=== PATIENT | female | born 1960 | race Caucasian/White ===

== ENCOUNTER → 2020-08-26 10:31 | Outpatient (CLI) | payer OTHER, SELFPAY ==
[2020-08-26 19:58] LABS: SARS-CoV-2 RNA PCR Positive
== END ==
PROVIDERS: PCP Family Medicine Adolescent Medicine; Visit Provider Physician Assistant
DX: U07.1 COVID-19 (principal)
CPT/HCPCS: C9803; U0003; U0005

== ENCOUNTER 2025-02-19 18:30 | Emergency (ER) | payer OTHER, SELFPAY ==
--- OUTSIDE RECORDS SUMMARY | 2008-09-28 05:00 | XMS_ITS | Continuity of Care Document ---
Author Organization [facility] Address [address] [place] [address] [place] [address] Phone Care Team Providers Care Hole Puncher Strap Name Role Phone Van Manriquez Unavailable Unavailable Procedures Procedure Date Office/outpatient Visit, Est Office/outpatient Visit, Est Office/outpatient Visit, Est Eye Exam & Treatment Office/outpatient Visit, Est Office Consultation Advance Directives Directive Yes / No Effective Date File Name No Information Encounters Encounter Description Practice Location Reason(s) For Visit Diagnoses Date Provider Providers Copied on Encounter Office/outpat ient Visit, [facility], [address] [place] [address] [address], [place], [place], [id number], [place] tel:[phone] [facility] No Information [address] [address], [place], [address], [place]. tel:[phone] Referring Provider: Jose Frank OD, [address] [place], [address]. tel:[phone] Office/outpat ient Visit, [facility], [address] [place] [address] [address], [place], [place], [id number], [place] tel:[phone] [facility] No Information 1-[address] [address], [place], [address], [place]. tel:[phone] Referring Provider: Jose Ramachandranjose OD, [address] [place], [address]. tel:[phone] Office/outpat ient Visit, [facility], [address] [place] [address] [address], [place], [place], [id number], [place] tel:[phone] SEC [facility] No Information [address]. [facility] [address], [facility], [place]. tel:[phone] Referring Provider: Jose Frank OD, [address] [place], [address]. tel:[phone] [facility], [address] [place] [address] [address], [place], [place], [id number], [place] tel:[phone] [facility] No Information 8 [address]. [facility] [address], [facility], [place]. tel:[phone] Referring Provider: Jose Frank OD, [address] [place], [address]. tel:[phone] Office/outpat ient Visit, [facility], [address] [place] [address] [address], [place], [place], [id number], [place] tel:[phone] SEC [place] [facility] No Information 7 Renee Quinteros. [address], [address] [place], [id number], [place]. tel:[phone] Office [facility]ation [facility], [address] [place] [address], [place], [place], [address], [place] tel:[phone] SEC [place] [facility] No Information 200 7 Rosa [address]us. [address], [place], [address], [place]. tel:[phone] Referring Provider: Jose Frank OD, [address] [place], [address]. tel:[phone] Family History Family Member Type Diagnosis Age At Onset No Information Payers Payer name Insurance type Covered republican ID Authoriza tion(s) No Information Social History Type Description Quantity Date Captured Comments Sex Female Smoking Status No Information Chief Complaint And Reason For Visit No Information Reason For Referral Reason For Referral No Information History Of Present Illness Encounter Date Complaint History Of Prese nt Illness No Information Functional Status Date Functional Assessmen t No Information Instructions Date Instruction Additional Infor mation No Information Assessments Type Assessment Date No Information Patient Care Teams Name Effective Dates (start - stop) Status Members No Information
--- OUTSIDE RECORDS SUMMARY | 2008-09-28 05:00 | XMS_ITS | Continuity of Care Document ---
Author Organization [facility] Address [address] [place] [address] [place] [address] Phone Care Team Providers Care Building Performance Consultant Name Role Phone Van Manriquez Unavailable Unavailable Procedures Procedure Date Office/outpatient Visit, Est Office/outpatient Visit, Est Office/outpatient Visit, Est Eye Exam & Treatment Office/outpatient Visit, Est Office Consultation Advance Directives Directive Yes / No Effective Date File Name No Information Encounters Encounter Description Practice Location Reason(s) For Visit Diagnoses Date Provider Providers Copied on Encounter Office/outpat ient Visit, [facility], [address] [place] [address] [address], [place], [place], [id number], [place] tel:[phone] [facility] No Information [address] [address], [place], [address], [place]. tel:[phone] Referring Provider: Jose Frank OD, [address] [place], [address]. tel:[phone] Office/outpat ient Visit, [facility], [address] [place] [address] [address], [place], [place], [address], [place] tel:[phone] [facility] No Information 1-200 8 [address] [address], [place], [address], [place]. tel:[phone] Referring Provider: Jose Ramachandranjose OD, [address] [place], [address]. tel:[phone] Office/outpat ient Visit, [facility], [address] [place] [address] [address], [place], [place], [id number], [place] tel:[phone] SEC [facility] No Information [address]. [facility] [address], [facility], [place]. tel:[phone] Referring Provider: Jose Frank OD, [address] [place], [address]. tel:[phone] [facility], [address] [place] [address] [address], [place], [place], [id number], [place] tel:[phone] [facility] No Information 8 [address]. [facility] [address], [facility], [place]. tel:[phone] Referring Provider: Jose Frank OD, [address] [place], [address]. tel:[phone] Office/outpat ient Visit, [facility], [address] [place] [address] [address], [place], [place], [id number], [place] tel:[phone] SEC [place] [facility] [place] No Information 7 Renee Quinteros. [address] [facility], [address] [place], [id number], [place]. tel:[phone] Office Consultation [facility], [address], [place], [place], [address], [place] tel:[phone] SEC [place] [facility] No Information 200 7 Rosa Lemus. [address], [place], [address], [place]. tel:[phone] Referring Provider: Jose Frank OD, [address] [place], [address]. tel:[phone] Family History Family Member Type Diagnosis Age [...]
--- NOTE | ~2025-02-19 | XR_ITS ---
XR hand RT min 3V INDICATION: injury from getting caught in mole trap . COMPARISON: None. FINDINGS: Frontal, lateral, and oblique views of the right hand demonstrate no acute fracture or dislocation. Degenerative changes with joint space narrowing are noted. IMPRESSION: Radiographic examination of the right hand demonstrates no acute fracture or dislocation. Reviewed, dictated and finalized at location S. IMPRESSION: Radiographic examination of the right hand demonstrates no acute fracture or di slocation.
[2025-02-19 18:46] VITALS: BP 147/87; PULSE 92; RESP 22; TEMP 36.3; O2SAT 100
--- OUTSIDE RECORDS SUMMARY | 2025-02-19 19:20 | XMS_ITS | Patient Health Record ---
Author Organization [facility] Address [address] [place], [place] [id number] Care Team Providers Care Fnps Name Role Phone HANG Mcgovern Unavailable [phone] Declan Ellsworth Unavailable Unavailable Reason For Referral No Information Plan Of Treatment No Information Insurance Providers Payer Name Payer Address Payer Phone Subscriber Number Group Number Insured Name Patient Relationship to Insured Coverage Start Date Coverage End Date [facility] [address] [address] [place] [id number] Self - patient is the insured
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
--- OUTSIDE RECORDS SUMMARY | 2025-02-19 21:15 | XMS_ITS | Clinical Summary ---
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 Recommend patient see bone specialist at [facility]. Patient agrees. Referral sent. Discussed the need [...] PM CDT): Here for annual exam. 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 Encouraged regular exercise and healthy diet and lifestyle. Monthly SBEs encouraged. Annual mammograms recommended. Assessment & Plan (02/18/2023 2:29 PM CDT): Here for annual exam. 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 Encouraged regular exercise and healthy diet and lifestyle. Monthly SBEs encouraged. Annual mammograms recommended. Order for bone density placed. Name and number of GI doctor given to patient to schedule screening colonoscopy. Assessment & Plan (02/18/2022 12:37 PM CDT): Here for annual exam. 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 Encouraged regular exercise and healthy diet and lifestyle. Monthly SBEs encouraged. Annual mammograms recommended. Pt to call if rash not resolved. Encounters Date Type Department Care Team Description 01/24/2025 Telephone [facility] [address] [place] [address] Katlyn Bennett MD 01/14/2025 Results Follow-Up [facility] [address] [facility] [address]th [place] [address] [place] [phone] Watson Guillen MD PTH, TSH, Vitamin D 25 hydroxy, Additional followed-up results: 6 01/03/2025 Telephone [facility] [address] [facility] [address]th [place] [address] [place] [phone] Watson Guillen MD 01/02/2025 7:30 PM CDT Lab [facility] ([facility]) [address] [place] [phone] Age-related osteoporosis without current pathological fracture 01/02/2025 3:20 PM CDT Office Visit [facility] [address] [address]th [place] [address] [place] [phone] Watson Guillen MD Age-related osteoporosis without current pathological fracture (Primary Dx) 01/02/2025 2:50 PM CDT Clinical Support [facility] 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 Temperature - - Respiratory Rate - - [...] ORDERABLES Final Resu lt Performing Organization Address [facility] Co de Phone Number [facility] [place] [address] * Beta-CrossLaps (Beta-CTx) (01/02/2025 4:48 PM CDT) [...] ORDERABLES Final Resu lt Performing Organization Address [facility] [place] [address] * Osteocalcin (01/02/2025 4:48 PM CDT) Osteocalcin [...] ORDERABLES Final Resu lt Performing Organization Address City/[facility] Co de Phone Number [facility] Department [place] [address] * Vitamin D 25 hydroxy (01/02/2025 4:48 PM CDT) Pathologist [facility] Vitamin D 25-OH 36 30 - 80 ng/mL Blood 01/02/2025 4:48 PM CDT 01/02/2025 5:34 PM CDT Watson Guillen MD LAB BLOOD ORDERABLES Final Resu lt Performing Organization Address City/[facility]/ZIP Co de Phone Number [facility] [place] [address] * TSH (01/02/2025 4:48 PM CDT) Pathologist [facility] Thyroid Stimulating Hormone 1.09 0.30 - 4.20 mcIUnit/mL Blood 01/02/2025 4:48 PM CDT 01/02/2025 5:34 PM CDT Watson Guillen MD LAB BLOOD ORDERABLES Final Resu lt Performing Organization Address City/[facility] [place] [address] * Protein electrophoresis with reflex, serum with interpretation (01/02/2025 4:48 PM CDT) [facility] Protein, sr 7.5 6.2 - 8.2 g/dL Albumin 4.5 3.2 - 5.0 g/dL [facility] Alpha-1 globulin 0.3 0.2 - 0.4 g/dL [facility] Alpha-2 globulin 0.8 0.5 - 1.0 g/dL [facility] Beta-1 globulin 0.5 0.3 - 0.6 g/dL [facility] Beta-2 globulin 0.4 0.2 - 0.6 g/dL [facility] Gamma globulin 1.0 0.5 - 1.7 g/dL [facility] SPEP interp Please see comment [facility] Comment: No apparent monoclonal peak Reviewed and Signed by Vidal Carey MD, PhD 01/03/2025 Blood 01/02/2025 4:48 PM CDT 01/02/2025 5:35 PM CDT Waston Guillen MD LAB BLOOD ORDERABLES Final Resu lt Performing Organization Address City/[facility] Co de Phone Number [facility] [place] [address] * Phosphorus (01/02/2025 4:48 PM CDT) Pathologist [facility] Phosphorus, pl 3.3 2.3 - 4.5 mg/dL Blood 01/02/2025 4:48 PM CDT 01/02/2025 5:34 PM CDT Watson Guillen MD LAB BLOOD ORDERABLES Final Resu lt Performing Organization Address [facility] Co de Phone Number [facility] [place] [address] * PTH (01/02/2025 4:48 PM CDT) [facility] PTH 62 15 - 65 pg/mL Blood 01/02/2025 4:48 PM CDT 01/02/2025 5:35 PM CDT Watson Guillen MD LAB BLOOD ORDERABLES Final Resu lt Performing Organization Address [facility] Co de Phone Number [facility] [place] [address] * (ABNORMAL) Comprehensive metabolic panel (01/02/2025 4:48 PM CDT) [facility] Sodium 141 135 - 145 mmol/L Potassium, pl 4.2 3.3 - 4.9 mmol/L [facility] Chloride 105 97 - 110 mmol/L [facility] CO2 25 22 - 32 mmol/L [facility] Anion gap 11 2 - 15 mmol/L [facility] BUN 16 6 - 25 mg/dL [facility] Creatinine 0.67 0.60 - 1.10 mg/dL [facility] Glucose 102 70 - 199 mg/dL [facility] Comment: Interpretive Data Fasting glucose >/= 126 [...] 2022. Calcium 10.7(H) 8.5 - 10.3 mg/dL [facility] Bilirubin, total 0.8 0.1 - 1.2 mg/dL [facility] Protein, pl 7.7 6.5 - 8.5 g/dL [facility] Albumin 4.5 3.5 - 5.0 g/dL [facility] Alk phos 90 40 - 130 Units/L [facility] ALT 21 7 - 45 Units/L [facility] AST 20 10 - 45 Units/L [facility] Blood 01/02/2025 4:48 PM CDT 01/02/2025 5:34 PM CDT us Watson Guillen MD LAB BLOOD ORDERABLES Final Resu lt [facility] Department [place] [address] * Dexa TBS Axial Skeleton Bone Density 1 or more sites (01/02/2025 3:18 PM CDT) Anatomical Region Laterality Modality Wrist, Body N/A Radiographic Florinda ging Narrative 2025 1:22 PM CDT Patient Name: Cliff Banksday Date of : 1960 Date of scan: [...] by the International Society of Clinical Densitometry. [id number] Watson Guillen MD IM DXA PROCEDURES Final Result * Pap and HPV, reflex to HPV Genotypes (02/21/2024 2:45 PM CDT) CLINICAL INFORMATION: [facility] Comment:POSTMENOPAUSAL LMP [facility] Comment:NONE GIVEN Previous Pap [facility] Comment:NONE GIVEN Prev. Bx [facility] Comment:NONE GIVEN SOURCE: [facility] Comment:Cervix, Endocervix Pap, specimen adequacy [facility] Comment:SATISFACTORY FOR THOMAS LUATION HPV interp [facility] Comment: Cytology Results: Negative for intraepithelial lesion or malignancy. Atrophic pattern; predominantly parabasal cells COMMENTS [facility] Comment: This Pap test has been evaluated with computer assisted technology. Engraving Press Operator [facility] Comment: ABC, CT(ASCP) CT screening location: [place] [address] [place] [address] Comment [facility] Comment: EXPLANATORY NOTE: The Pap is a [...] High Risk E6/E7 Not Detected NOT DETECTED [facility] Comment: Not Detected High Risk HPV types (16,18,31,33,35,39,45,51,52, 56,58,59,66,68) were not detected. Other HPV types which cause anogenital lesions may be present. The significance of the other types of HPV in malignant processes has not been established. Methodology: Real Time PCR Thin prep-Endocervica l 02/21/2024 2:45 PM CDT 02/22/2024 12:01 PM CDT Katlyn Bennett MD LAB CYTOLOGY ORDERABLES Fin al Result [facility] [address] [place] [address] [facility] [address] [facility] [address] [place] [address] * Screening Mammogram Bilateral W Murphy (02/21/2024 [...] Most Recently Relevant to Health Maintenance Insurance [facility] CHOICE PLUS [place] [id number] [facility] [employer] [facility] [employer] Care Teams Auxiliary Powerplant Operator Relationship Specialty Start Date End Date Declan Ellsworth MD PCP - General 07/11/15 Katlyn Bennett MD [address] [facility] [address] [place] [address] Consulting Physician Obstetrics and Gynecology 02/11/22
--- NOTE | 2025-02-19 21:26 | ED_ITS ---
HPI - Extremity Injury (Upper) General Chief Complaint: Extremity Injury, Upper Stated Complaint: right hand injury Time Seen by Provider: 02/19/25 20:13 Source: patient Mode of arrival: ambulatory Limitations: no limitations History of Present Illness HPI narrative: This is a 65-year-old female that presents to the emergency department for right hand pain. Reports she accidentally got her hand caught in a mole trap. Reports bruising and pain to the area. Denies numbness. Related Data Home Medications ?Medication ?Instructions ?Recorded ?Confirmed ?Last Taken ?Type fish,borage,flaxseed oil-omega 1 cap PO DAILY 11/14/21 01/08/25 Unknown History 3,6,9 no.1 400 mg-400 mg-400 mg capsule vitamin B complex (B 1 tablet PO DAILY 11/14/21 0 01/08/25 Unknown History Complex-Vitamin B12 tablet) Allergies Allergy/AdvReac Type Severity Reaction Status Date / Time morphine AdvReac Unknown Hallucinati Verified 02/19/25 18:46 ng ANTIHISTIMINES AdvReac Unknown Jittery Uncoded 01/08/25 10:29 Review of Systems Review of Systems: All systems reviewed & are unremarkable except as noted in HPI and below PMFSH Past Medical History Medical History History of ectopic (2000) History of Mohs micrographic surgery for skin cancer (~04/2022) Basal Cell Carcinoma - Nose Surgical History Surgical History History of hysterectomy with oophorectomy (2000) History of tonsillectomy Family History Family History Father Diabetes mellitus CHF (congestive heart failure) Mother Acute myocardial infarction Social History Social History (Updated 11/16/22 @ 15:41 by Ava Morales MA) Smoking status: Never smoker Second hand tobacco smoke exposure: No Alcohol intake: never Substance use: never Substance use type: does not use Lack of Transportation: No Lack of Food: Never True Current Housing: I Have Housing Concerned About Future Housing: No Difficulty Paying Gas/Electric Bills: No Difficulty Paying for Meds: No Currently Unemployed: No Education: Trade/Vocational Certificate Difficulty w/ Childcare or Family Care: No Living arrangements: alone Occupation/Education: occupation Gender identity (if verbalized by the patient): Female Spiritual care concerns: No Agree to blood products: Yes Exam Narrative: GENERAL: Well-appearing, well-nourished, and in no acute distress. HEAD: Normocephalic, atraumatic. EYES: EOMI. EXTREMITIES: Normal range of motion. Mild bruising and swelling to the right hand dorsal surface SKIN: Warm, dry, no rash. NEURO: No focal deficits. Alert and oriented x3. PSYCH: Normal mood and affect Course Vital Signs Vital signs: Vital Signs Temperature 97.4 F L 02/19/25 18:46 Pulse Rate 92 02/19/25 18:46 Respiratory Rate 22 H 02/19/25 18:46 Blood Pressure 147/87 H 02/19/25 18:46 Pulse Oximetry 100 02/19/25 18:46 Oxygen Delivery Room Air 02/19/25 18:46 Temperature 97.4 F L 02/19/25 18:46 Pulse Rate 79 02/19/25 21:54 Respiratory Rate 14 02/19/25 21:54 Blood Pressure 129/80 02/19/25 21:54 Pulse Oximetry 98 02/19/25 21:54 Oxygen Delivery Room Air 02/19/25 18:46 MDM - Extremity Injury (Upper) MDM Narrative Medical decision making narrative: Patient presents to the emergency department for right hand injury. Right hand x-ray without acute osseous abnormalities. Patient updated on her workup. Inst ructed to rest, ice, take over the counter pain medication as needed. She is to follow up with primary provider. She was given warnings to return to the ER Differential Diagnosis Differential diagnosis: Likely fracture of hand and other (contusion) Imaging Data Radiologist's impression: ITS Impressions Hand X-Ray 02/19/25 20:43 IMPRESSION: Radiographic examination of the right hand demonstrates no acute fracture or dislocation. Critical Care Time Critical Care Time Critical Care Time: No Discharge Plan Discharge Clinical Impression: Contusion of hand Qualifiers: Encounter type: initial encounter Laterality: right Qualified Code(s): S60.221A - Contusion of right hand, initial encounter Patient Disposition: Home Condition: Stable Instructions: Contusion in Adults (ED) Additional Instructions: Return to the ER if you experience fever, redness and swelling of your extremity, numbness or any other symptoms that are concerning to you Ice and elevate extremity. Tylenol or Ibuprofen as needed for pain Follow up with your doctor for further care. Patient Language: Citizen [place] Prescriptions: No Action vitamin B complex [B Complex-Vitamin B12] Tablet 1 tablet PO DAILY fish,bora,flax oils-om3,6,9no1 400-400-400 mg capsule 1 cap PO DAILY (DME) Dexcom G6 Sensor Device See Rx Instructions .Route Qty: 3 3RF Rx Instructions: As directed (DME) Dexcom G6 Transmitter Device See Rx Instructions .Route Qty: 1 0RF Rx Instructions: As directed (DME) blood-glucose meter [OneTouch Ultra2 Meter] Misc See Rx Instructions .Route Qty: 1 1RF Rx Instructions: Use to test blood glucose once daily (DME) lancets 30 gauge misc See Rx Instructions .Route Qty: 100 2RF Rx Instructions: As directed (DME) OneTouch Ultra Test Strip See Rx Instructions .ROUTE .COMPLEX Qty: 100 1RF Dose Instruction: USE TO TEST BLOOD GLUCOSE ONCE DAILY Rx Instructions: USE TO TEST BLOOD GLUCOSE ONCE DAILY Ozempic 1 mg/dose (4 mg/3 mL) pen injector 1 mg subcut WEEKLY Qty: 3 5RF oxybutynin chloride 5 mg tablet See Rx Instructions .ROUTE .COMPLEX Qty: 180 3RF Dose Instruction: TAKE ONE TABLET BY MOUTH TWICE A DAY NEEDED FOR EXCESSIVE SWEATING Rx Instructions: TAKE ONE TABLET BY MOUTH TWICE A DAY NEEDED FOR EXCESSIVE SWEATING Jardiance 25 mg tablet 25 mg PO DAILY Qty: 90 0RF metformin 500 mg tablet extended release 24 hr 2,000 mg PO DAILY Qty: 360 3RF atorvastatin 20 mg tablet 20 mg PO DAILY Qty: 90 3RF Follow-up/Referrals: Declan Ellsworth MD [Primary Care Provider, Family Practice]
[2025-02-19 21:54] VITALS: BP 129/80; PULSE 79; RESP 14; O2SAT 98
== END 2025-02-19 21:52 | disposition home or self-care (01) ==
PROVIDERS: Emergency Provider Physician Assistant; PCP Family Medicine Adolescent Medicine
DX: S60.221A Contusion of right hand, initial encounter (principal); W23.0XXA Caught, crushed, jammed, or pinched between moving objects, initial encounter
CPT/HCPCS: 73130; 99283